=== PATIENT | female | born 1940 | race Caucasian/White ===

== ENCOUNTER 2016-08-29 02:01 | Inpatient (IN) | payer OTHER ==
[~2016-08-29] VITALS: Ht 167.6 cm; Wt 77.7 kg
[~2016-08-29 02:01] MED LIST: ALLOPURINOL100 MG PO; BENICAR HCT 401 EAC1 PO; BENICAR20 MG PO; BUPROPION XL150 MG PO; CIPRO500 MG PO; COLCHICINE0.6 M1 PO; Colchicine,Colcrys PO; DELTASONE20 M1 PO; FUROSEMIDE20 MG PO; HYDROXYCHLOROQ200 MG PO; K-DUR20 MEQ PO; LOPRESSOR100 M1 PO; LYRICA50 MG PO; NIZORAL 2% CREA15 GM TP; OXYCODONE HCL5 MG PO; PRIMIDONE50 MG PO; PROVENTIL,2.5 MG/0.5 AEROSOL; ROXICODONE5 MG PO; SYNTHROID50 MCG PO; VALACYCLOVIR500 MG PO; VITAMIN D2000 UNI1 PO
[2016-08-29 05:42] LABS: EOSINOPHIL (%) 0.1 % (0-5); HEMATOCRIT 35.8 % (36.0-46.0); IMMATURE GRANULOCYTE (%) 0.8 % (0.0-0.7); LYMPHOCYTE COUNT 0.9 K/uL (1.0-2.8); MCH 30.7 PG (29.0-34.0); MCHC 34.1 G/DL (30.0-36.0); MCV 89.9 FL (83-99); MEAN PLAT.VOLUME 9.6 uM^3 (9.5-12.4); MONOCYTE (%) 4.7 % (3-12); MONOCYTE COUNT 0.6 K/uL (0-0.8); NEUTROPHIL (%) 87.2 % (45-76); NEUTROPHIL COUNT 10.8 K/uL (1.8-6.4); PLATELET COUNT 189 K/uL (156-360); RED BLOOD COUNT 3.98 M/uL (3.80-5.20); WHITE BLOOD COUNT 12.4 K/uL (4.1-10.2)
[2016-08-29 05:51] LABS: CHLORIDE 98 mEq/L (99-109); INTER. NORMALIZED RATIO 1.1; POTASSIUM 3.3 mEq/L (3.7-5.4); PROTHROMBIN TIME 10.7 (9.2-11.2); SODIUM 137 mEq/L (136-147)
[2016-08-29 05:52] LABS: GLUCOSE 148 mg/dL (70-99)
[2016-08-29 05:54] LABS: ANION GAP 15 MEQ/L (2-14)
[2016-08-29 05:56] LABS: GFR ESTIMATE (CALCULATED) 24 mL/min/
[2016-08-29 05:57] LABS: UREA NITROGEN (BUN) 55 mg/dL (9-23)
[2016-08-29] MEDS ORDERED: K-DUR10 MEQ PO (07:44)
[2016-08-29] MEDS ORDERED: LYRICA75 MG PO ×2 (07:45→07:46)
[2016-08-29] MEDS ORDERED: VIMOVO 500-201 EAC1 PO (07:47)
[2016-08-29] MEDS ORDERED: OLMESARTAN-HCT1 EAC2 PO (07:47)
[2016-08-29] MEDS ORDERED: GABAPENTIN300 MG PO (07:49)
[2016-08-29] MEDS ORDERED: TRAMADOL HCL50 MG PO (07:49)
[2016-08-29] MEDS ORDERED: CYCLOBENZAPRINE5 MG PO (07:49)
[2016-08-29] MEDS ORDERED: LIDOCAINE700 MG TD (07:50)
[2016-08-29 09:23] VITALS: BP 192/75
[2016-08-29 12:00] LABS: ADD MIUA? YES; BILIRUBIN NEGATIVE; BLOOD TRACE; COLOR YELLOW ((YELLOW)); GLUCOSE (STRIP) NEGATIVE; KETONES NEGATIVE; LEUKOCYTES LARGE; NITRITE NEGATIVE; PROTEIN (STRIP) NEGATIVE; UROBILINOGEN 0.2 MG/DL (0.2-1.0)
[2016-08-29 12:28] LABS: RED BLOOD CELLS 0-5 /HPF (0-5); WHITE BLOOD CELLS 30-40 /HPF (0-5)
[2016-08-29 12:29] LABS: BACTERIA 3+; CASTS NONE SEEN /LPF; CRYSTALS NONE SEEN; EPITHELIAL CELLS RARE; MUCUS NONE SEEN; UCUL ADDED? YES
[2016-08-29 16:15] VITALS: BP 135/65
[2016-08-29 19:24] VITALS: BP 97/50
[2016-08-29 23:23] VITALS: BP 105/59
[2016-08-30 03:36] VITALS: BP 111/56
[2016-08-30 07:06] LABS: ALKALINE PHOSPHATASE 85 IU/L (3-129); ANION GAP 9 MEQ/L (2-14); CHLORIDE 98 MEQ/L (99-109); CREATINE KINASE 130 IU/L (1-294); GFR ESTIMATE (CALCULATED) 27 mL/min/; GLUCOSE 139 mg/dL (70-99); POTASSIUM 3.9 MEQ/L (3.7-5.4); SAMPLE HEMOLYSIS CHECK 0; SAMPLE ICTERIC CHECK 0; SAMPLE LIPEMIA CHECK 0; SODIUM 134 MEQ/L (136-147); TOTAL BILIRUBIN 0.4 MG/DL (0.0-1.0); UREA NITROGEN (BUN) 50 mg/dL (9-23)
[2016-08-30 07:12] LABS: HEMATOCRIT 30.3 % (36.0-46.0); MCH 31.4 PG (29.0-34.0); MCHC 33.7 G/DL (30.0-36.0); MCV 93.2 FL (83-99); MEAN PLAT.VOLUME 10.7 uM^3 (9.5-12.4); PLATELET COUNT 150 K/uL (156-360); RBC DIS.WIDTH-CV 13.4 % (11.8-14.6); RBC DIS.WIDTH-SD 45.5 % (39-53); RED BLOOD COUNT 3.25 M/uL (3.80-5.20); WHITE BLOOD COUNT 11.6 K/uL (4.1-10.2)
[2016-08-30 08:44] VITALS: BP 130/60
[2016-08-30 15:41] VITALS: BP 110/55
[2016-08-30 20:25] VITALS: BP 124/59
[2016-08-30 23:32] VITALS: BP 126/61
[2016-08-31 03:45] LABS: UR CREATININE CONCENTRATION 52.6 MG/DL
[2016-08-31 06:17] LABS: ANION GAP 6 MEQ/L (2-14); CHLORIDE 105 MEQ/L (99-109); GFR ESTIMATE (CALCULATED) 39 mL/min/; GLUCOSE 136 mg/dL (70-99); POTASSIUM 5.3 MEQ/L (3.7-5.4); SAMPLE HEMOLYSIS CHECK 0; SAMPLE ICTERIC CHECK 0; SAMPLE LIPEMIA CHECK 0; SODIUM 135 MEQ/L (136-147); UREA NITROGEN (BUN) 38 mg/dL (9-23)
[2016-08-31 07:11] VITALS: BP 139/67
[2016-08-31 15:13] VITALS: BP 149/65
[2016-08-31 19:00] VITALS: BP 155/71
[2016-08-31 23:36] VITALS: BP 141/77
[2016-09-01 03:45] VITALS: BP 140/63
[2016-09-01 05:58] LABS: HEMATOCRIT 29.5 % (36.0-46.0); MCV 93.1 FL (83-99)
[2016-09-01 06:27] LABS: ANION GAP 10 MEQ/L (2-14); CHLORIDE 105 MEQ/L (99-109); GFR ESTIMATE (CALCULATED) 46 mL/min/; GLUCOSE 117 mg/dL (70-99); POTASSIUM 4.7 MEQ/L (3.7-5.4); SAMPLE HEMOLYSIS CHECK 0; SAMPLE ICTERIC CHECK 0; SAMPLE LIPEMIA CHECK 0; SODIUM 138 MEQ/L (136-147); UREA NITROGEN (BUN) 25 mg/dL (9-23)
[2016-09-01 07:34] VITALS: BP 166/76
[2016-09-01 11:29] VITALS: BP 168/80
[2016-09-01 16:17] VITALS: BP 155/74
[2016-09-01 19:25] VITALS: BP 133/65
[2016-09-01 23:38] VITALS: BP 187/75
[2016-09-02 03:27] VITALS: BP 137/63
[2016-09-02 06:48] LABS: HEMATOCRIT 28.1 % (36.0-46.0); MCH 30.1 PG (29.0-34.0); MCHC 32.4 G/DL (30.0-36.0); MEAN PLAT.VOLUME 10.8 uM^3 (9.5-12.4); PLATELET COUNT 134 K/uL (156-360); RBC DIS.WIDTH-CV 13.8 % (11.8-14.6); RBC DIS.WIDTH-SD 46.7 % (39-53); RED BLOOD COUNT 3.02 M/uL (3.80-5.20)
[2016-09-02 06:50] LABS: WHITE BLOOD COUNT 5.6 K/uL (4.1-10.2)
[2016-09-02 07:11] VITALS: BP 129/60
[2016-09-02 07:12] LABS: ANION GAP 11 MEQ/L (2-14); CHLORIDE 108 MEQ/L (99-109); GFR ESTIMATE (CALCULATED) 39 mL/min/; GLUCOSE 81 mg/dL (70-99); POTASSIUM 3.8 MEQ/L (3.7-5.4); SAMPLE HEMOLYSIS CHECK 0; SAMPLE ICTERIC CHECK 0; SAMPLE LIPEMIA CHECK 0; SODIUM 142 MEQ/L (136-147); UREA NITROGEN (BUN) 25 mg/dL (9-23)
[2016-09-02 08:49] LABS: ALKALINE PHOSPHATASE 93 IU/L (3-129); ANION GAP 11 MEQ/L (2-14); CHLORIDE 108 MEQ/L (99-109); GFR ESTIMATE (CALCULATED) 39 mL/min/; GLUCOSE 81 mg/dL (70-99); POTASSIUM 3.8 MEQ/L (3.7-5.4); SAMPLE HEMOLYSIS CHECK 0; SAMPLE ICTERIC CHECK 0; SAMPLE LIPEMIA CHECK 0; SODIUM 142 MEQ/L (136-147); TOTAL BILIRUBIN 0.4 MG/DL (0.0-1.0); UREA NITROGEN (BUN) 25 mg/dL (9-23)
[2016-09-02] MEDS ORDERED: BENICAR HCT 401 EAC1 PO (15:16)
[2016-09-02] MEDS ORDERED: VIMOVO 500-201 EAC1 PO (15:16)
[2016-09-02] MEDS ORDERED: LASIX20 MG PO (15:19)
[2016-09-02] MEDS ORDERED: BUPROPION HCL150 M2 PO (15:20)
[2016-09-02] MEDS ORDERED: K-DUR20 MEQ PO (15:22)
[2016-09-02 15:48] VITALS: BP 129/64
[2016-09-03 00:19] VITALS: BP 133/63
[2016-09-03 05:43] LABS: ANION GAP 11 MEQ/L (2-14); CHLORIDE 105 MEQ/L (99-109); GFR ESTIMATE (CALCULATED) 42 mL/min/; GLUCOSE 86 mg/dL (70-99); POTASSIUM 3.6 MEQ/L (3.7-5.4); SAMPLE HEMOLYSIS CHECK 0; SAMPLE ICTERIC CHECK 0; SAMPLE LIPEMIA CHECK 0; SODIUM 143 MEQ/L (136-147); UREA NITROGEN (BUN) 29 mg/dL (9-23)
[2016-09-03 08:15] VITALS: BP 153/72
[2016-09-03 14:30] VITALS: BP 104/59
[2016-09-03 21:51] VITALS: BP 112/56
[2016-09-03 23:37] VITALS: BP 111/52
[2016-09-04 01:15] VITALS: BP 148/79
[2016-09-04 07:03] LABS: ANION GAP 12 MEQ/L (2-14); CHLORIDE 102 MEQ/L (99-109); GFR ESTIMATE (CALCULATED) 23 mL/min/; POTASSIUM 4.2 MEQ/L (3.7-5.4); SAMPLE HEMOLYSIS CHECK 0; SAMPLE ICTERIC CHECK 0; SAMPLE LIPEMIA CHECK 0; SODIUM 139 MEQ/L (136-147)
[2016-09-04 07:04] LABS: GLUCOSE 120 mg/dL (70-99); UREA NITROGEN (BUN) 47 mg/dL (9-23)
[2016-09-04 08:08] VITALS: BP 129/60
[2016-09-04 16:47] VITALS: BP 109/55
[2016-09-04 23:55] VITALS: BP 112/54
[2016-09-05 01:49] LABS: ADD MIUA? NO; BILIRUBIN SMALL; BLOOD NEGATIVE; COLOR DK YELLOW ((YELLOW)); GLUCOSE (STRIP) NEGATIVE; KETONES NEGATIVE; LEUKOCYTES NEGATIVE; NITRITE NEGATIVE; PROTEIN (STRIP) TRACE; SPECIFIC GRAVITY 1.021 (1.000-1.030); UROBILINOGEN 0.2 MG/DL (0.2-1.0)
[2016-09-05 05:00] LABS: EOSINOPHIL (%) 0.1 % (0-5); HEMATOCRIT 28.1 % (36.0-46.0); IMMATURE GRANULOCYTE (%) 1.3 % (0.0-0.7); IMMATURE GRANULOCYTE COUNT 1.2 K/uL; LYMPHOCYTE COUNT 0.5 K/uL (1.0-2.8); MCH 30.3 PG (29.0-34.0); MCHC 32.7 G/DL (30.0-36.0); MCV 92.4 FL (83-99); MEAN PLAT.VOLUME 10.9 uM^3 (9.5-12.4); MONOCYTE (%) 2.4 % (3-12); MONOCYTE COUNT 0.2 K/uL (0-0.8); NEUTROPHIL COUNT 8.6 K/uL (1.8-6.4); PLATELET COUNT 189 K/uL (156-360); RBC DIS.WIDTH-CV 13.6 % (11.8-14.6); RBC DIS.WIDTH-SD 44.3 % (39-53); RED BLOOD COUNT 3.04 M/uL (3.80-5.20); WHITE BLOOD COUNT 9.4 K/uL (4.1-10.2)
[2016-09-05 05:08] LABS: CHLORIDE 101 mEq/L (99-109); POTASSIUM 4.5 mEq/L (3.7-5.4); SODIUM 135 mEq/L (136-147)
[2016-09-05 05:10] LABS: GLUCOSE 152 mg/dL (70-99)
[2016-09-05 05:11] LABS: ANION GAP 16 MEQ/L (2-14)
[2016-09-05 05:12] LABS: CHLORIDE 102 mEq/L (99-109); POTASSIUM 4.6 mEq/L (3.7-5.4); SODIUM 135 mEq/L (136-147)
[2016-09-05 05:13] LABS: GFR ESTIMATE (CALCULATED) 21 mL/min/
[2016-09-05 05:14] LABS: GLUCOSE 150 mg/dL (70-99); UREA NITROGEN (BUN) 62 mg/dL (9-23)
[2016-09-05 05:15] LABS: ANION GAP 14 MEQ/L (2-14)
[2016-09-05 05:16] LABS: TOTAL BILIRUBIN 0.4 mg/dL (0.0-1.0)
[2016-09-05 05:17] LABS: ALKALINE PHOSPHATASE 103 IU/L (3-129)
[2016-09-05 05:18] LABS: GFR ESTIMATE (CALCULATED) 20 mL/min/
[2016-09-05 05:19] LABS: UREA NITROGEN (BUN) 61 mg/dL (9-23)
[2016-09-05 07:39] VITALS: BP 110/59
[2016-09-05 16:28] VITALS: BP 114/72
[2016-09-06 00:09] VITALS: BP 102/54
[2016-09-06 06:12] LABS: EOSINOPHIL (%) 0 % (0-5); HEMATOCRIT 27.6 % (36.0-46.0); IMMATURE GRANULOCYTE (%) 0.8 % (0.0-0.7); IMMATURE GRANULOCYTE COUNT 0.1 K/uL; LYMPHOCYTE COUNT 1.2 K/uL (1.0-2.8); MCH 30.4 PG (29.0-34.0); MCHC 33.3 G/DL (30.0-36.0); MCV 91.1 FL (83-99); MEAN PLAT.VOLUME 10.8 uM^3 (9.5-12.4); MONOCYTE (%) 4.9 % (3-12); MONOCYTE COUNT 0.8 K/uL (0-0.8); NEUTROPHIL (%) 86.5 % (45-76); NEUTROPHIL COUNT 13.5 K/uL (1.8-6.4); RBC DIS.WIDTH-SD 46.5 % (39-53); RED BLOOD COUNT 3.03 M/uL (3.80-5.20)
[2016-09-06 06:17] LABS: PLATELET COUNT 258 K/uL (156-360); WHITE BLOOD COUNT 15.6 K/uL (4.1-10.2)
[2016-09-06 06:48] LABS: ANION GAP 15 MEQ/L (2-14); CHLORIDE 95 MEQ/L (99-109); GFR ESTIMATE (CALCULATED) 17 mL/min/; GLUCOSE 188 mg/dL (70-99); POTASSIUM 4.6 MEQ/L (3.7-5.4); SAMPLE HEMOLYSIS CHECK 0; SAMPLE ICTERIC CHECK 0; SAMPLE LIPEMIA CHECK 0; SODIUM 131 MEQ/L (136-147); UREA NITROGEN (BUN) 89 mg/dL (9-23)
[2016-09-06 07:43] VITALS: BP 106/58
[2016-09-06 17:18] VITALS: BP 117/58
[2016-09-07 00:04] VITALS: BP 115/56
[2016-09-07 06:19] LABS: EOSINOPHIL (%) 0 % (0-5); HEMATOCRIT 29.2 % (36.0-46.0); IMMATURE GRANULOCYTE COUNT 0.2 K/uL; LYMPHOCYTE COUNT 1.6 K/uL (1.0-2.8); MCH 30.1 PG (29.0-34.0); MCHC 33.2 G/DL (30.0-36.0); MCV 90.7 FL (83-99); MEAN PLAT.VOLUME 10.7 uM^3 (9.5-12.4); MONOCYTE (%) 7.4 % (3-12); MONOCYTE COUNT 1.2 K/uL (0-0.8); NEUTROPHIL (%) 81.2 % (45-76); NEUTROPHIL COUNT 12.6 K/uL (1.8-6.4); PLATELET COUNT 256 K/uL (156-360); RBC DIS.WIDTH-CV 13.9 % (11.8-14.6); RED BLOOD COUNT 3.22 M/uL (3.80-5.20); WHITE BLOOD COUNT 15.5 K/uL (4.1-10.2)
[2016-09-07 06:39] LABS: ANION GAP 12 MEQ/L (2-14); CHLORIDE 99 MEQ/L (99-109); GFR ESTIMATE (CALCULATED) 17 mL/min/; SAMPLE HEMOLYSIS CHECK 0; SAMPLE ICTERIC CHECK 0; SAMPLE LIPEMIA CHECK 0; SODIUM 133 MEQ/L (136-147)
[2016-09-07 06:48] LABS: GLUCOSE 115 mg/dL (70-99)
[2016-09-07 06:50] LABS: UREA NITROGEN (BUN) 105 mg/dL (9-23)
[2016-09-07 07:32] VITALS: BP 121/57
[2016-09-07 13:38] LABS: C3 COMPLEMENT 128 MG/DL (58-170); C4 COMPLEMENT 19 MG/DL (10-40)
[2016-09-07 15:39] VITALS: BP 115/59
[2016-09-07 23:35] VITALS: BP 134/64
[2016-09-08 06:24] LABS: EOSINOPHIL (%) 0.1 % (0-5); HEMATOCRIT 29.1 % (36.0-46.0); IMMATURE GRANULOCYTE (%) 1.7 % (0.0-0.7); IMMATURE GRANULOCYTE COUNT 0.2 K/uL; LYMPHOCYTE COUNT 1.8 K/uL (1.0-2.8); MCH 30.2 PG (29.0-34.0); MCV 91.5 FL (83-99); MEAN PLAT.VOLUME 10.8 uM^3 (9.5-12.4); MONOCYTE (%) 8.5 % (3-12); MONOCYTE COUNT 0.9 K/uL (0-0.8); NEUTROPHIL COUNT 7.4 K/uL (1.8-6.4); PLATELET COUNT 286 K/uL (156-360); RBC DIS.WIDTH-CV 14.1 % (11.8-14.6); RBC DIS.WIDTH-SD 46.9 % (39-53); RED BLOOD COUNT 3.18 M/uL (3.80-5.20)
[2016-09-08 06:25] LABS: WHITE BLOOD COUNT 10.3 K/uL (4.1-10.2)
[2016-09-08 06:57] LABS: ALKALINE PHOSPHATASE 69 IU/L (3-129); ANION GAP 17 MEQ/L (2-14); CHLORIDE 103 MEQ/L (99-109); GLUCOSE 94 mg/dL (70-99); POTASSIUM 4.4 MEQ/L (3.7-5.4); SAMPLE HEMOLYSIS CHECK 0; SAMPLE ICTERIC CHECK 0; SAMPLE LIPEMIA CHECK 0; UREA NITROGEN (BUN) 97 mg/dL (9-23); URIC ACID 7.1 mg/dL (3.1-9.2)
[2016-09-08 06:58] LABS: GFR ESTIMATE (CALCULATED) 22 mL/min/; SODIUM 140 MEQ/L (136-147); TOTAL BILIRUBIN 0.3 MG/DL (0.0-1.0)
[2016-09-08 08:24] VITALS: BP 134/63
[2016-09-08 16:30] VITALS: BP 127/60
[2016-09-08 23:44] VITALS: BP 134/63
[2016-09-09 07:19] VITALS: BP 125/77
[2016-09-09 11:48] LABS: ANION GAP 11 MEQ/L (2-14); CHLORIDE 110 MEQ/L (99-109); POTASSIUM 3.8 MEQ/L (3.7-5.4); SAMPLE HEMOLYSIS CHECK 0; SAMPLE ICTERIC CHECK 0; SAMPLE LIPEMIA CHECK 0; SODIUM 142 MEQ/L (136-147)
[2016-09-09 11:57] LABS: GFR ESTIMATE (CALCULATED) 36 mL/min/; GLUCOSE 131 mg/dL (70-99); UREA NITROGEN (BUN) 82 mg/dL (9-23)
[2016-09-09 16:47] VITALS: BP 123/74
[2016-09-09 23:21] VITALS: BP 145/66
[2016-09-10 06:23] LABS: ANION GAP 8 MEQ/L (2-14); CHLORIDE 115 MEQ/L (99-109); GFR ESTIMATE (CALCULATED) 42 mL/min/; POTASSIUM 3.8 MEQ/L (3.7-5.4); SAMPLE HEMOLYSIS CHECK 0; SAMPLE ICTERIC CHECK 0; SAMPLE LIPEMIA CHECK 0; SODIUM 148 MEQ/L (136-147); UREA NITROGEN (BUN) 68 mg/dL (9-23)
[2016-09-10 06:34] LABS: GLUCOSE 95 mg/dL (70-99)
[2016-09-10 08:30] VITALS: BP 160/70
[2016-09-10 11:30] VITALS: BP 161/73
[2016-09-10 16:30] VITALS: BP 183/78
[2016-09-10] MEDS ORDERED: HYDROCODON-ACE1 EAC7 PO (18:41)
[2016-09-10] MEDS ORDERED: THERAGRAN1 TABLET PO (18:41)
[2016-09-10] MEDS ORDERED: SPIRIVA RESPIMAT4 GM IH (18:41)
[2016-09-10] MEDS ORDERED: GABAPENTIN600 MG PO (18:41)
[2016-09-10] MEDS ORDERED: LEVAQUIN500 MG PO (18:41)
[2016-09-10] MEDS ORDERED: MUCINEX600 MG PO (18:41)
[2016-09-10] MEDS ORDERED: PANTOPRAZOLE SO40 MG PO (18:41)
[2016-09-10] MEDS ORDERED: MAG-AL PLUS SUS30 ML PO (18:41)
[2016-09-10] MEDS ORDERED: SENNA PLUS TAB1 EACH PO (18:41)
[2016-09-10] MEDS ORDERED: DOXYCYCLINE HY100 M3 PO (18:41)
[2016-09-10] MEDS ORDERED: ADVAIR HFA120 INHALA IH (18:41)
[2016-09-10] MEDS ORDERED: APRESOLINE25 MG PO (18:41)
[2016-09-10] MEDS ORDERED: BENADRYL25 MG PO (18:41)
[2016-09-10] MEDS ORDERED: BISAC-EVAC10 MG PR (18:41)
[2016-09-10] MEDS ORDERED: DUONEB 2.5-0.5 M3 ML AEROSOL (18:41)
[2016-09-10] MEDS ORDERED: VITAMIN D-32000 UNI2 PO (18:41)
[2016-09-10 20:26] VITALS: BP 109/65
[2016-09-10 20:28] VITALS: BP 177/77
[2016-09-13 22:27] LABS: Neutrophil Cytoplasmic Aby Negative (Negative)
== END 2016-09-10 22:19 | DRG 469 ==
LOC: EME → EDBD 02:01 → EDSEX 02:01 → EME 02:01 → 3EAST 06:20 → EDOF 06:20 → 3EAST 09:02
PROVIDERS: Emergency Medicine; Family Medicine; Internal Medicine; Internal Medicine Nephrology; Orthopaedic Surgery
PROC: 0SRS0J9 Replacement of Left Hip Joint, Femoral Surface with Synthetic Substitute, Cemented, Open Approach (ICD-10-PCS; principal; 2016-08-31)
DX: S72.012A Unspecified intracapsular fracture of left femur, initial encounter for closed fracture (principal); J18.9 Pneumonia, unspecified organism; S52.532A Colles' fracture of left radius, initial encounter for closed fracture; N30.00 Acute cystitis without hematuria; F33.9 Major depressive disorder, recurrent, unspecified; N17.9 Acute kidney failure, unspecified; F05 Delirium due to known physiological condition; J44.1 Chronic obstructive pulmonary disease with (acute) exacerbation; J90 Pleural effusion, not elsewhere classified; J98.11 Atelectasis; W01.0XXA Fall on same level from slipping, tripping and stumbling without subsequent striking against object, initial encounter; Y92.000 Kitchen of unspecified non-institutional (private) residence as the place of occurrence of the external cause; E86.0 Dehydration; Y93.01 Activity, walking, marching and hiking; Z60.2 Problems related to living alone; E03.9 Hypothyroidism, unspecified; F41.9 Anxiety disorder, unspecified; E87.6 Hypokalemia; N18.3 Chronic kidney disease, stage 3 (moderate); I12.9 Hypertensive chronic kidney disease with stage 1 through stage 4 chronic kidney disease, or unspecified chronic kidney disease; M10.9 Gout, unspecified; E66.9 Obesity, unspecified; S40.012A Contusion of left shoulder, initial encounter; J20.9 Acute bronchitis, unspecified; Z87.891 Personal history of nicotine dependence; Z68.27 Body mass index [BMI] 27.0-27.9, adult
CPT/HCPCS: 71010; 71020; 73030; 73110; 73502; 73522; 76770; 80048; 80053; 80069; 81003; 82550; 82570; 82948; 83880; 84100; 84156; 84439; 84443; 84550; 85014; 85018; 85025; 85027; 85610; 85730; 86021 90; 86038; 86160; 86162 90; 86850; 86900; 86901; 87077; 87086; 87186; 89190; 93005; 93970; 94010; 94640; 94640 76; 94760; 94799; 97530 GO; 97530 GP; 99202; 99281; 99285; C1713; C9113; J0131; J0690; J1170; J1644; J1650; J1940; J2250; J2270; J2405; J2543; J2930; J3010; J7030; J7050; J7512

== ENCOUNTER 2016-09-25 11:31 | Inpatient (IN) | payer OTHER ==
[~2016-09-25] VITALS: Ht 162.6 cm; Wt 68.1 kg
[~2016-09-25 11:31] MED LIST changes: +ADVAIR HFA120 INHALA IH; +APRESOLINE25 MG PO; +BENADRYL25 MG PO; +BISAC-EVAC10 MG PR; +BUPROPION HCL150 M2 PO; +CYCLOBENZAPRINE5 MG PO; +DOXYCYCLINE HY100 M3 PO; +DUONEB 2.5-0.5 M3 ML AEROSOL; +GABAPENTIN300 MG PO; +GABAPENTIN600 MG PO; +HYDROCODON-ACE1 EAC7 PO; +K-DUR10 MEQ PO; +LASIX20 MG PO; +LEVAQUIN500 MG PO; +LIDOCAINE700 MG TD; +LYRICA75 MG PO; +MAG-AL PLUS SUS30 ML PO; +MUCINEX600 MG PO; +OLMESARTAN-HCT1 EAC2 PO; +PANTOPRAZOLE SO40 MG PO; +SENNA PLUS TAB1 EACH PO; +SPIRIVA RESPIMAT4 GM IH; +THERAGRAN1 TABLET PO; +TRAMADOL HCL50 MG PO; +VIMOVO 500-201 EAC1 PO; +VITAMIN D-32000 UNI2 PO
[2016-09-25 13:04] LABS: CHLORIDE 113 mEq/L (99-109); POTASSIUM 2.8 mEq/L (3.7-5.4); SODIUM 150 mEq/L (136-147)
[2016-09-25 13:06] LABS: GLUCOSE 101 mg/dL (70-99)
[2016-09-25 13:07] LABS: ANION GAP 13 MEQ/L (2-14)
[2016-09-25 13:10] LABS: GFR ESTIMATE (CALCULATED) 16 mL/min/
[2016-09-25 13:11] LABS: UREA NITROGEN (BUN) 94 mg/dL (9-23)
[2016-09-25] MEDS ORDERED: LASIX20 MG PO (13:47)
[2016-09-25] MEDS ORDERED: APLISOL5 TUB UNIT ID (13:49)
[2016-09-25] MEDS ORDERED: DUONEB 2.5-0.5 M3 ML AEROSOL (13:50)
[2016-09-25] MEDS ORDERED: PRILOSEC20 MG PO (13:50)
[2016-09-25] MEDS ORDERED: HYZAAR 100-21 TABLET PO (13:51)
[2016-09-25] MEDS ORDERED: K-DUR10 MEQ PO (13:52)
[2016-09-25] MEDS ORDERED: XARELTO15 MG PO (13:52)
[2016-09-25 13:53] LABS: ADD MIUA? YES; BILIRUBIN NEGATIVE; BLOOD NEGATIVE; COLOR YELLOW ((YELLOW)); GLUCOSE (STRIP) NEGATIVE; KETONES NEGATIVE; LEUKOCYTES SMALL; NITRITE NEGATIVE; PH, URINE 5.5 (5-8); PROTEIN (STRIP) NEGATIVE; SPECIFIC GRAVITY 1.021 (1.000-1.030); UROBILINOGEN 0.2 MG/DL (0.2-1.0)
[2016-09-25] MEDS ORDERED: TYLENOL REGULA325 MG PO (13:53)
[2016-09-25] MEDS ORDERED: MILK OF MAGN PO (13:54)
[2016-09-25] MEDS ORDERED: FLEET ENEMA-AD118 ML PR (13:55)
[2016-09-25] MEDS ORDERED: MAG-AL LIQUID30 ML PO (13:56)
[2016-09-25] MEDS ORDERED: PROMETHAZINE HC25 M1 PO (13:57)
[2016-09-25 14:11] LABS: BACTERIA RARE; CASTS PRESENT /LPF; CRYSTALS NONE SEEN; EPITHELIAL CELLS 1+; MUCUS NONE SEEN; RED BLOOD CELLS 0-5 /HPF (0-5); UCUL ADDED? NO; WHITE BLOOD CELLS 0-5 /HPF (0-5)
[2016-09-25 14:12] LABS: HYALINE CASTS 0-5 /LPF
[2016-09-25] MEDS ORDERED: WELLBUTRIN XL150 MG PO (18:26)
[2016-09-25 19:00] VITALS: BP 133/61
[2016-09-25 23:12] VITALS: BP 125/59
[2016-09-26] VITALS (11 sets, daily range): BP systolic 110–129; BP diastolic 53–86
[2016-09-26 07:12] LABS: MCH 29.8 PG (29.0-34.0); MCHC 32.6 G/DL (30.0-36.0); MCV 91.5 FL (83-99); RBC DIS.WIDTH-CV 16.6 % (11.8-14.6); RBC DIS.WIDTH-SD 55.3 % (39-53); RED BLOOD COUNT 2.95 M/uL (3.80-5.20)
[2016-09-26 07:13] LABS: WHITE BLOOD COUNT 4.1 K/uL (4.1-10.2)
[2016-09-26 07:17] LABS: ALKALINE PHOSPHATASE 73 IU/L (3-129); ANION GAP 11 MEQ/L (2-14); CHLORIDE 116 MEQ/L (99-109); GLUCOSE 106 mg/dL (70-99); SAMPLE HEMOLYSIS CHECK 0; SAMPLE ICTERIC CHECK 0; SAMPLE LIPEMIA CHECK 0; SODIUM 149 MEQ/L (136-147); TOTAL BILIRUBIN 0.4 MG/DL (0.0-1.0); UREA NITROGEN (BUN) 70 mg/dL (9-23)
[2016-09-26 07:19] LABS: GFR ESTIMATE (CALCULATED) 26 mL/min/; POTASSIUM 3.9 MEQ/L (3.7-5.4)
[2016-09-26 07:53] LABS: PLATELET COUNT UNABLE TO REPORT K/uL (156-360)
[2016-09-27] VITALS (8 sets, daily range): BP systolic 111–166; BP diastolic 58–72
[2016-09-27 06:53] LABS: ALKALINE PHOSPHATASE 68 IU/L (3-129); ANION GAP 10 MEQ/L (2-14); CHLORIDE 112 MEQ/L (99-109); GFR ESTIMATE (CALCULATED) 27 mL/min/; POTASSIUM 3.5 MEQ/L (3.7-5.4); SAMPLE HEMOLYSIS CHECK 0; SAMPLE ICTERIC CHECK 0; SAMPLE LIPEMIA CHECK 0; SODIUM 145 MEQ/L (136-147); TOTAL BILIRUBIN 0.4 MG/DL (0.0-1.0); UREA NITROGEN (BUN) 73 mg/dL (9-23)
[2016-09-27 06:55] LABS: GLUCOSE 179 mg/dL (70-99)
[2016-09-27 07:08] LABS: EOSINOPHIL (%) 0 % (0-5); IMMATURE GRANULOCYTE (%) 0.4 % (0.0-0.7); LYMPHOCYTE COUNT 1.2 K/uL (1.0-2.8); MCH 29.3 PG (29.0-34.0); MCHC 33.3 G/DL (30.0-36.0); MCV 87.8 FL (83-99); MONOCYTE (%) 4.7 % (3-12); MONOCYTE COUNT 0.3 K/uL (0-0.8); NEUTROPHIL (%) 77.3 % (45-76); NEUTROPHIL COUNT 5.5 K/uL (1.8-6.4); RBC DIS.WIDTH-CV 16.2 % (11.8-14.6); RBC DIS.WIDTH-SD 51.3 % (39-53)
[2016-09-27 07:09] LABS: WHITE BLOOD COUNT 7.1 K/uL (4.1-10.2)
[2016-09-27 07:43] LABS: MEAN PLAT.VOLUME 11.3 uM^3 (9.5-12.4); PLAT.SUFFICIENCY DECREASED; PLATELET COUNT 125 K/uL (156-360); USER ID SDF
[2016-09-28] VITALS (7 sets, daily range): BP systolic 127–149; BP diastolic 57–70
[2016-09-28 07:18] LABS: ALKALINE PHOSPHATASE 72 IU/L (3-129); ANION GAP 10 MEQ/L (2-14); CHLORIDE 110 MEQ/L (99-109); GFR ESTIMATE (CALCULATED) 31 mL/min/; GLUCOSE 173 mg/dL (70-99); SAMPLE HEMOLYSIS CHECK 0; SAMPLE ICTERIC CHECK 0; SAMPLE LIPEMIA CHECK 0; SODIUM 141 MEQ/L (136-147); TOTAL BILIRUBIN 0.4 MG/DL (0.0-1.0); UREA NITROGEN (BUN) 65 mg/dL (9-23)
[2016-09-28 07:19] LABS: POTASSIUM 4.3 MEQ/L (3.7-5.4)
[2016-09-28 07:20] LABS: HEMATOCRIT 38.4 % (36.0-46.0); MCH 29.2 PG (29.0-34.0); MCHC 33.1 G/DL (30.0-36.0); MCV 88.3 FL (83-99); MEAN PLAT.VOLUME 10.8 uM^3 (9.5-12.4); PLATELET COUNT 109 K/uL (156-360); RBC DIS.WIDTH-CV 16.5 % (11.8-14.6); RED BLOOD COUNT 4.35 M/uL (3.80-5.20)
[2016-09-28 07:21] LABS: WHITE BLOOD COUNT 10.1 K/uL (4.1-10.2)
[2016-09-29 03:33] VITALS: BP 132/74
[2016-09-29 07:20] VITALS: BP 151/76
[2016-09-29 07:21] LABS: HEMATOCRIT 37.9 % (36.0-46.0); MCH 29.5 PG (29.0-34.0); MCHC 33.2 G/DL (30.0-36.0); MCV 88.8 FL (83-99); MEAN PLAT.VOLUME 11.2 uM^3 (9.5-12.4); PLATELET COUNT 93 K/uL (156-360); RBC DIS.WIDTH-SD 52.2 % (39-53); RED BLOOD COUNT 4.27 M/uL (3.80-5.20); WHITE BLOOD COUNT 11.6 K/uL (4.1-10.2)
[2016-09-29 08:00] LABS: ALKALINE PHOSPHATASE 61 IU/L (3-129); ANION GAP 8 MEQ/L (2-14); CHLORIDE 108 MEQ/L (99-109); GFR ESTIMATE (CALCULATED) 42 mL/min/; GLUCOSE 143 mg/dL (70-99); SAMPLE HEMOLYSIS CHECK 0; SAMPLE ICTERIC CHECK 0; SAMPLE LIPEMIA CHECK 0; SODIUM 136 MEQ/L (136-147); TOTAL BILIRUBIN 0.4 MG/DL (0.0-1.0); UREA NITROGEN (BUN) 56 mg/dL (9-23)
[2016-09-29 08:08] LABS: POTASSIUM 5.6 MEQ/L (3.7-5.4)
[2016-09-29 11:25] VITALS: BP 151/71
[2016-09-29] MEDS ORDERED: LEVAQUIN250 MG PO (13:54)
[2016-09-29] MEDS ORDERED: PREDNISONE10 MG PO (13:55)
[2016-09-29 15:46] VITALS: BP 136/72
== END 2016-09-29 17:35 | DRG 191 ==
LOC: EME 11:31 → 2EAST 13:33 → EDOF 13:33 → 2EAST 19:38
PROVIDERS: Emergency Medicine; Internal Medicine
PROC: 30233N1 Transfusion of Nonautologous Red Blood Cells into Peripheral Vein, Percutaneous Approach (ICD-10-PCS; principal; 2016-09-26)
DX: J44.0 Chronic obstructive pulmonary disease with (acute) lower respiratory infection (principal); N17.9 Acute kidney failure, unspecified; E87.0 Hyperosmolality and hypernatremia; F33.9 Major depressive disorder, recurrent, unspecified; E86.0 Dehydration; N18.9 Chronic kidney disease, unspecified; I12.9 Hypertensive chronic kidney disease with stage 1 through stage 4 chronic kidney disease, or unspecified chronic kidney disease; E87.6 Hypokalemia; D64.9 Anemia, unspecified; Z87.891 Personal history of nicotine dependence
CPT/HCPCS: 71020; 80048; 80053; 81003; 85025; 85027; 86850; 86900; 86901; 86920; 87070; 87205; 94640; 94640 76; 94799; 97530 GO; 97530 GP; 99202; 99281; 99285; J0696; J1940; J1956; J2405; J2930; J3480; J7030; J7050; P9016; Q0169

== ENCOUNTER → 2016-10-27 | Outpatient (CLI) | payer OTHER ==
[~2016-10-27] MED LIST changes: +APLISOL5 TUB UNIT ID; +FLEET ENEMA-AD118 ML PR; +HYZAAR 100-21 TABLET PO; +LEVAQUIN250 MG PO; +MAG-AL LIQUID30 ML PO; +MILK OF MAGN PO; +PREDNISONE10 MG PO; +PRILOSEC20 MG PO; +PROMETHAZINE HC25 M1 PO; +TYLENOL REGULA325 MG PO; +WELLBUTRIN XL150 MG PO; +XARELTO15 MG PO
== END ==
LOC: MRI 12:36 → RAD 13:30
DX: M51.36 Other intervertebral disc degeneration, lumbar region (principal); Z74.09 Other reduced mobility
CPT/HCPCS: 72148

== ENCOUNTER 2017-10-21 19:48 | Inpatient (IN) | payer OTHER ==
[~2017-10-21] VITALS: Ht 157.5 cm; Wt 71.0 kg
[~2017-10-21 19:48] MED LIST changes: -LOPRESSOR100 M1 PO; +LOPRESSOR25 MG PO
[2017-10-21 20:51] LABS: APPEARANCE TURBID ((CLEAR)); BILIRUBIN NEGATIVE; BLOOD NEGATIVE; COLOR YELLOW ((YELLOW)); GLUCOSE (STRIP) NEGATIVE; KETONES NEGATIVE; LEUKOCYTES LARGE; NITRITE POSITIVE; PROTEIN (STRIP) 30; UROBILINOGEN 0.2 MG/DL (0.2-1.0)
[2017-10-21 21:05] LABS: BASOPHIL (%) 0.4 % (0-1); BASOPHIL COUNT 0.1 K/uL (0-0.1); EOSINOPHIL (%) 0.1 % (0-5); HEMATOCRIT 34.6 % (36.0-46.0); HEMOGLOBIN 11.7 G/DL (11.9-15.5); IMMATURE GRANULOCYTE (%) 0.5 % (0.0-0.7); LYMPHOCYTE (%) 2.8 % (15-42); LYMPHOCYTE COUNT 0.5 K/uL (1.0-2.8); MCH 30.7 PG (29.0-34.0); MCHC 33.8 G/DL (30.0-36.0); MCV 90.8 FL (83-99); MONOCYTE (%) 4.6 % (3-12); MONOCYTE COUNT 0.9 K/uL (0-0.8); NEUTROPHIL (%) 91.6 % (45-76); NEUTROPHIL COUNT 17.1 K/uL (1.8-6.4); PLATELET COUNT 213 K/uL (156-360); RBC DIS.WIDTH-CV 13.6 % (11.8-14.6); RBC DIS.WIDTH-SD 45.9 % (39-53); RED BLOOD COUNT 3.81 M/uL (3.80-5.20); WHITE BLOOD COUNT 18.6 K/uL (4.1-10.2)
[2017-10-21 21:18] LABS: CHLORIDE 97 mEq/L (99-109); POTASSIUM 4.8 mEq/L (3.7-5.4); SODIUM 133 mEq/L (136-147)
[2017-10-21 21:19] LABS: MAGNESIUM 1.5 mg/dL (1.3-2.7)
[2017-10-21 21:20] LABS: GLUCOSE 157 mg/dL (70-99)
[2017-10-21 21:24] LABS: CREATININE 0.8 mg/dL (0.6-1.3); GFR ESTIMATE (CALCULATED) > 59 mL/min/; UREA NITROGEN (BUN) 21 mg/dL (9-23)
[2017-10-21 21:28] LABS: EPITHELIAL CELLS NONE SEEN /HPF; MUCUS NONE SEEN /LPF
[2017-10-21 21:28] LABS: TROP-I INTERPRETATION NEGATIVE; TROPONIN-I 0.06 ng/mL (0.0-0.30)
[2017-10-21 21:29] LABS: BACTERIA 4+ /HPF; RED BLOOD CELLS RARE /HPF (0-5); UCUL ADDED? YES; WHITE BLOOD CELLS TNTC /HPF (0-5)
[2017-10-21] MEDS ORDERED: BUSPIRONE HCL5 MG PO (21:55)
[2017-10-21] MEDS ORDERED: VOLTAREN 1% GE100 GM TP (21:55)
[2017-10-21] MEDS ORDERED: IRON325 M1 PO (21:56)
[2017-10-21] MEDS ORDERED: CALCIUM 600 +1 EA13 PO (21:56)
[2017-10-21] MEDS ORDERED: COZAAR50 MG PO (21:57)
[2017-10-21] MEDS ORDERED: LYRICA75 MG PO (21:58)
[2017-10-21] MEDS ORDERED: DAILY VALUE1 EACH PO (21:59)
[2017-10-21] MEDS ORDERED: SODIUM CHLORIDE1 G1 PO (22:01)
[2017-10-21] MEDS ORDERED: SENNA PLUS TAB1 EACH PO (22:01)
[2017-10-21] MEDS ORDERED: SPIRIVA RESPIMAT4 GM IH (22:02)
[2017-10-21] MEDS ORDERED: DURAGESIC50 MCG TD (22:03)
[2017-10-21] MEDS ORDERED: ATIVAN0.5 MG PO (22:04)
[2017-10-21 22:07] LABS: INTER. NORMALIZED RATIO 1.1
[2017-10-21 22:09] LABS: PTT 31.1 SEC (25-37)
[2017-10-22] VITALS (7 sets, daily range): BP systolic 106–161; BP diastolic 53–71
[2017-10-23 04:33] VITALS: BP 148/67
[2017-10-23 06:21] LABS: HEMATOCRIT 31.7 % (36.0-46.0); HEMOGLOBIN 10.5 G/DL (11.9-15.5); MCH 30.6 PG (29.0-34.0); MCHC 33.1 G/DL (30.0-36.0); MCV 92.4 FL (83-99); PLATELET COUNT 212 K/uL (156-360); RBC DIS.WIDTH-CV 14.2 % (11.8-14.6); RED BLOOD COUNT 3.43 M/uL (3.80-5.20); WHITE BLOOD COUNT 26.1 K/uL (4.1-10.2)
[2017-10-23 06:48] LABS: CHLORIDE 101 MEQ/L (99-109); CREATININE 0.9 MG/DL (0.6-1.3); GFR ESTIMATE (CALCULATED) > 59 mL/min/; GLUCOSE 105 mg/dL (70-99); POTASSIUM 4.3 MEQ/L (3.7-5.4); SODIUM 133 MEQ/L (136-147); UREA NITROGEN (BUN) 20 mg/dL (9-23)
[2017-10-23 07:34] VITALS: BP 127/69
[2017-10-23 15:19] VITALS: BP 128/63
[2017-10-23 19:32] VITALS: BP 145/65
[2017-10-23 23:31] VITALS: BP 125/59
[2017-10-24 03:59] VITALS: BP 137/67
[2017-10-24 08:08] VITALS: BP 115/61
[2017-10-24 11:48] VITALS: BP 131/60
[2017-10-24 15:55] VITALS: BP 122/60
[2017-10-24 19:54] VITALS: BP 118/69
[2017-10-24 23:57] VITALS: BP 169/74
[2017-10-25] VITALS (9 sets, daily range): BP systolic 135–203; BP diastolic 64–89
[2017-10-25 04:47] LABS: HEMATOCRIT 30.6 % (36.0-46.0); HEMOGLOBIN 10.2 G/DL (11.9-15.5); MCH 30.3 PG (29.0-34.0); MCHC 33.3 G/DL (30.0-36.0); MCV 90.8 FL (83-99); PLATELET COUNT 248 K/uL (156-360); RBC DIS.WIDTH-CV 14.3 % (11.8-14.6); RBC DIS.WIDTH-SD 47.5 % (39-53); RED BLOOD COUNT 3.37 M/uL (3.80-5.20); WHITE BLOOD COUNT 12.2 K/uL (4.1-10.2)
[2017-10-25 05:09] LABS: CHLORIDE 104 mEq/L (99-109); POTASSIUM 3.6 mEq/L (3.7-5.4); SODIUM 137 mEq/L (136-147)
[2017-10-25 05:15] LABS: CREATININE 0.8 mg/dL (0.6-1.3); GFR ESTIMATE (CALCULATED) > 59 mL/min/
[2017-10-25 05:16] LABS: UREA NITROGEN (BUN) 25 mg/dL (9-23)
[2017-10-25 05:26] LABS: GLUCOSE 171 mg/dL (70-99)
[2017-10-26 02:39] VITALS: BP 142/67
[2017-10-26 07:56] VITALS: BP 161/91
[2017-10-26 17:11] VITALS: BP 138/68
[2017-10-26 21:48] LABS: TROP-I INTERPRETATION NEGATIVE; TROPONIN-I 0.04 ng/mL (0.0-0.30)
[2017-10-26 23:52] VITALS: BP 110/54
[2017-10-27 03:16] VITALS: BP 152/80
[2017-10-27 05:56] LABS: HEMATOCRIT 31.9 % (36.0-46.0); HEMOGLOBIN 10.4 G/DL (11.9-15.5); MCH 30.2 PG (29.0-34.0); MCHC 32.6 G/DL (30.0-36.0); MCV 92.7 FL (83-99); PLATELET COUNT 256 K/uL (156-360); RBC DIS.WIDTH-SD 47.6 % (39-53); RED BLOOD COUNT 3.44 M/uL (3.80-5.20); WHITE BLOOD COUNT 9.1 K/uL (4.1-10.2)
[2017-10-27 06:24] LABS: CHLORIDE 100 MEQ/L (99-109); CREATININE 0.6 MG/DL (0.6-1.3); GFR ESTIMATE (CALCULATED) > 59 mL/min/; POTASSIUM 3.8 MEQ/L (3.7-5.4); SODIUM 140 MEQ/L (136-147); UREA NITROGEN (BUN) 20 mg/dL (9-23)
[2017-10-27 06:27] LABS: GLUCOSE 114 mg/dL (70-99)
[2017-10-27 06:49] LABS: TROP-I INTERPRETATION NEGATIVE; TROPONIN-I 0.05 ng/mL (0.0-0.30)
[2017-10-27 08:34] VITALS: BP 160/76
[2017-10-27 11:36] VITALS: BP 160/86
[2017-10-27 14:33] LABS: TROP-I INTERPRETATION NEGATIVE; TROPONIN-I 0.03 ng/mL (0.0-0.30)
[2017-10-27 16:35] VITALS: BP 149/66
[2017-10-27 19:59] VITALS: BP 142/61
[2017-10-27 23:52] VITALS: BP 150/67
[2017-10-28] VITALS (7 sets, daily range): BP systolic 111–154; BP diastolic 55–92
[2017-10-29 08:09] VITALS: BP 146/67
[2017-10-29 12:02] VITALS: BP 151/65
[2017-10-29 17:00] VITALS: BP 137/65
[2017-10-29 19:34] VITALS: BP 137/65
[2017-10-29] MEDS ORDERED: PANTOPRAZOLE SO40 MG PO (21:46)
[2017-10-29] MEDS ORDERED: FUROSEMIDE40 MG PO (21:46)
[2017-10-29 23:39] VITALS: BP 136/64
[2017-10-30 04:43] VITALS: BP 174/79
[2017-10-30 04:59] VITALS: BP 152/62
[2017-10-30 08:10] VITALS: BP 162/78
[2017-10-30 12:26] VITALS: BP 120/62
== END 2017-10-30 13:34 | DRG 194 ==
LOC: EME → EDBD 19:48 → EME 19:48 → EDOF 21:52 → 3EAST 21:52 → ENRESERV 22:03 → 3EAST 10-22 00:59
PROVIDERS: Emergency Medicine; Family Medicine
DX: J15.9 Unspecified bacterial pneumonia (principal); J44.0 Chronic obstructive pulmonary disease with (acute) lower respiratory infection; N39.0 Urinary tract infection, site not specified; B96.20 Unspecified Escherichia coli [E. coli] as the cause of diseases classified elsewhere; Z16.12 Extended spectrum beta lactamase (ESBL) resistance; J44.1 Chronic obstructive pulmonary disease with (acute) exacerbation; I48.0 Paroxysmal atrial fibrillation; J81.1 Chronic pulmonary edema; J91.8 Pleural effusion in other conditions classified elsewhere; I12.9 Hypertensive chronic kidney disease with stage 1 through stage 4 chronic kidney disease, or unspecified chronic kidney disease; N18.2 Chronic kidney disease, stage 2 (mild); G89.4 Chronic pain syndrome; E03.9 Hypothyroidism, unspecified; D64.9 Anemia, unspecified; K21.9 Gastro-esophageal reflux disease without esophagitis; M19.90 Unspecified osteoarthritis, unspecified site; M10.9 Gout, unspecified; F32.9 Major depressive disorder, single episode, unspecified; F41.9 Anxiety disorder, unspecified; Z91.81 History of falling; Z87.440 Personal history of urinary (tract) infections; Z87.891 Personal history of nicotine dependence; Z87.81 Personal history of (healed) traumatic fracture; Z96.649 Presence of unspecified artificial hip joint
CPT/HCPCS: 70450; 71045; 71046; 71260; 80048; 81003; 83605; 83735; 83880; 84484; 85025; 85027; 85610; 85730; 87040; 87077; 87086; 87186; 93005; 93306; 94640; 94640 76; 94760; 94799; 99202; 99281; 99285; J0692; J1940; J1956; J2185; J7050